=== PATIENT | male | born 1960 | race Caucasian/White ===

== ENCOUNTER 2019-05-29 14:38 | Outpatient (CLI) | payer SELFPAY | END 2019-05-29 23:59 | disposition home or self-care (01) | LOC: CFH 14:38 | PROVIDERS: ATTEND Internal Medicine Cardiovascular Disease | DX: I07.1 Rheumatic tricuspid insufficiency (principal); I77.810 Thoracic aortic ectasia; I10 Essential (primary) hypertension | CPT/HCPCS: 93306 ==